=== PATIENT | male | born 2000 | race Caucasian/White ===

== ENCOUNTER 2023-07-28 01:47 | Emergency (ER) | payer BC, MEDICAID ==
[~2023-07-28] VITALS: Ht 182.9 cm; Wt 181.0 kg
[2023-07-28 01:51] VITALS: O2SAT 96
[2023-07-28 04:57] VITALS: BP 149/78; PULSE 93; RESP 17
== END 2023-07-28 05:00 | disposition home or self-care (01) ==
LOC: ER 01:47
DX: F10.129 Alcohol abuse with intoxication, unspecified (principal); F19.90 Other psychoactive substance use, unspecified, uncomplicated; Y90.9 Presence of alcohol in blood, level not specified
CPT/HCPCS: 82962; 99283